=== PATIENT | female | born 1940 | race Caucasian/White ===

== ENCOUNTER 2021-07-15 11:13 | Emergency (ER) | payer MEDICARE ==
--- NOTE | 2021-07-15 12:12 | EDM.PDOC ---
ED HPI GENERAL MEDICAL PROBLEM - General Stated Complaint: STROKE LIKE SYMPTOMS Time Seen by Provider: 07/15/21 11:30 Source of Information: Reports: Patient, Family History Limitations: Reports: No Limitations - History of Present Illness INITIAL COMMENTS - FREE TEXT/NARRATIVE: Patient presented to the ED because of confusion which started at 4 am . said she looks confused and slow to respond. There is no slurring of speech, facial droop or any motor or sensory deficits on the UE and LE-bilateral. - Related Data Allergies Allergy/AdvReac Type Severity Reaction Status Date / Time morphine Allergy Nausea and Verified 09/14/18 13:15 Vomiting Home Meds: Home Meds Gabapentin [Neurontin] 600 mg PO BEDTIME 02/17/16 [History] Multivitamin with Minerals [Multiple Vitamin] 1 tab PO DAILY 02/17/16 [History] Omeprazole [Prilosec] 20 mg PO ACBREAKFAST 02/17/16 [History] PARoxetine [Paxil] 20 mg PO DAILY 02/17/16 [History] atenoloL [Tenormin] 25 mg PO BEDTIME 02/17/16 [History] atenoloL [Tenormin] 50 mg PO DAILY 02/17/16 [History] Aspirin [Ecotrin EC] 325 mg PO DAILY 09/14/18 [History] Ferrous Sulfate 325 mg PO BIDMEALS 09/14/18 [History] Sennosides/Docusate Sodium [Senna-S] 2 tab PO BID PRN 09/14/18 [History] amLODIPine Besylate [Amlodipine Besylate] 5 mg PO DAILY 09/14/18 [History] polyethylene glycoL 3350 [MiraLAX] 17 gm PO DAILY 09/14/18 [History] Acetaminophen/HYDROcodone [HYDROcodone-Acetaminophen 5-325 MG *] 1 tab PO TID PRN #15 tablet 09/22/18 [Rx] Enoxaparin [Lovenox] 40 mg SUBCUT Q24H #17 syringe 09/22/18 [Rx] atorvaSTATin [Lipitor] 40 mg PO BEDTIME 09/22/18 [History] Past Medical History HEENT History: Reports: Hard of Hearing Cardiovascular History: Reports: Blood Clots/VTE/DVT, CAD, High Cholesterol, Hypertension, Other (See Below) Other Cardiovascular History: Benign essential hypertension Respiratory History: Reports: None Gastrointestinal History: Reports: GERD Other Gastrointestinal History: GASTRIC ULCER Genitourinary History: Reports: Urinary Incontinence CRAP SHOOTER History: Reports: Other CRAP SHOOTER History: Musculoskeletal History: Reports: Back Pain, Chronic Other Musculoskeletal History: OSTEOPENIA Neurological History: Reports: CVA Other Neuro History: RLS; LUMBAR SPONDYLOSIS Psychiatric History: Reports: Anxiety Endocrine/Metabolic History: Reports: None Immunologic History: Reports: None Oncologic (Cancer) History: Reports: None Dermatologic History: Reports: None - Infectious Disease History Infectious Disease History: Reports: Measles - Past Surgical History Head Surgeries/Procedures: Reports: None HEENT Surgical History: Reports: Adenoidectomy, Cataract Surgery, Tonsillectomy Cardiovascular Surgical History: Reports: Coronary Artery Stent GI Surgical History: Reports: Colonoscopy, Polypectomy Female Surgical History: Reports: Breast Biopsy, Hysterectomy Musculoskeletal Surgical History: Reports: Hip Replacement, Knee Replacement Social & Family History - Family History Family Medical History: No Pertinent Family History - Caffeine Use Caffeine Use: Reports: Coffee, Soda, Tea Caffeine Use Comment: Daily ED ROS GENERAL - Review of Systems Review Of Systems: See Below Constitutional: Reports: No Symptoms HEENT: Reports: No Symptoms Respiratory: Reports: No Symptoms Cardiovascular: Reports: No Symptoms Endocrine: Reports: No Symptoms GI/Abdominal: Reports: No Symptoms : Reports: No Symptoms Musculoskeletal: Reports: No Symptoms Skin: Reports: No Symptoms Neurological: Reports: No Symptoms Psychiatric: Reports: No Symptoms ED EXAM, NEURO - Physical Exam Exam: See Below Exam Limited By: No Limitations General Appearance: Alert, No Apparent Distress Ears: Normal External Exam, Normal Canal Nose: Normal Inspection, Normal Mucosa, No Blood Throat/Mouth: Normal Inspection, Normal Lips, Normal Teeth, Normal Gums Head Exam: Atraumatic, Normocephalic Neck: Normal Inspection, Supple, Non-Tender, Full Range of Motion Respiratory/Chest: No Respiratory Distress, Lungs Clear, Normal Breath Sounds, No Accessory Muscle Use, Chest Non-Tender Cardiovascular: Normal Peripheral Pulses, Regular Rate, Rhythm, No Edema GI/Abdominal: Normal Bowel Sounds, Soft, No Organomegaly Neurological: Alert, Normal Mood/Affect, Normal Dorsiflexion, CN II-XII Intact, Normal Plantar Flexion, Normal Gait, Normal Reflexes, Oriented x 3 Back Exam: Normal Inspection, Full Range of Motion Extremities: Normal Inspection, Normal Range of Motion, Non-Tender Psychiatric: Normal Affect, Normal Mood Skin Exam: Warm, Dry, Intact, Normal Color, No Rash #1 Interpretation EKG Date: 07/15/21 Time: 11:19 Rhythm: NSR Rate (Beats/Min): 61 [place]: Normal P-Wave: Present QRS: Normal ST-T: Normal QT: Normal IN/PQ Interval: 169 Comparison: No Change EKG Interpretation Comments: NSR PAC's Course - Vital Signs Text/Narrative:: Lab/Head/EKG result was reviewed and discussed with patient NIHSS-0 Last Recorded V/S: Last Vital Signs Temp 36.3 C 07/15/21 11:20 Pulse 61 07/15/21 11:20 Resp 19 07/15/21 11:20 BP 169/67 H 07/15/21 11:20 Pulse Ox 97 07/15/21 11:20 - Orders/Labs/Meds Orders: Active Orders 24 hr Category Date Time Status Chest 1V Frontal [CR] Stat Exams 07/15/21 11:34 Taken Head wo Cont [CT] Stat Exams 07/15/21 11:28 Taken EKG 12 Lead [EK] Routine Ther 07/15/21 11:28 Ordered Labs: Laboratory Tests 07/15/21 07/15/21 07/15/21 Range/Units 11:54 11:54 11:54 WBC 7.4 (3.0-10.3) x10-3/uL RBC 4.02 (3.60-5.20) x10(6)uL Hgb 8.7 L (11.4-15.5) g/dL Hct 28.8 L (34.2-48.2) % MCV 71.8 L (76.7-100.5) fL MCH 21.7 L (23.9-33.9) pg MCHC 30.2 L (31.9-34.8) g/dL RDW 16.8 H (12.3-16.5) % Plt Count 228 (151-488) x10(3)uL MPV 8.4 (7.1-12.4) fL Neut % (Auto) 65.9 (30.8-76.2) % Lymph % (Auto) 21.3 (18.4-52.1) % [place] % (Auto) 9.8 (4.4-15.7) % Eos % (Auto) 2.2 (0.6-8.1) % Baso % (Auto) 0.8 (0.2-1.5) % Neut # (Auto) 4.9 (1.5-6.3) x10-3/uL Lymph # (Auto) 1.6 (1.0-4.4) x10-3/uL [place] # (Auto) 0.7 (0.3-1.0) x10-3/uL Eos # (Auto) 0.2 (0.0-0.8) x10-3/uL Baso # (Auto) 0.1 (0.0-0.1) x10-3/uL PT (9.0-11.1) sec INR (1.00-1.24) APTT (24.4-33.2) SECONDS Sodium 142 (135-145) mmol/L Potassium 4.3 (3.5-5.3) mmol/L Chloride 107 D (100-110) mmol/L Carbon Dioxide 26 (21-32) mmol/L BUN 20 H (7-18) mg/dL Creatinine 0.8 (0.55-1.02) mg/dL Est Cr Clr Drug Dosing TNP Estimated GFR (MDRD) > 60 (>60) BUN/Creatinine Ratio 25.0 H (9-20) Glucose 109 (80-116) mg/dL Calcium 8.5 L (8.6-10.2) mg/dL Total Bilirubin 0.4 (0.1-1.3) mg/dL AST 15 D (5-25) IU/L ALT 20 D (12-36) U/L Alkaline Phosphatase 101 (56-112) IU/L Troponin I 8.2 (4.0-60.3) pg/mL Total Protein 6.6 (6.0-8.0) g/dL Albumin 3.3 (3.2-4.6) g/dL Globulin 3.3 g/dL Albumin/Globulin Ratio 1.0 Urine Color (YELLOW) Urine Appearance (CLEAR) Urine pH (5.0-6.5) Ur Specific [place] (1.010-1.025) Urine Protein (NEGATIVE) mg/dL Urine Glucose (UA) (NORMAL) mg/dL Urine Ketones (NEGATIVE) mg/dL Urine Occult Blood (NEGATIVE) Urine Nitrite (NEGATIVE) Urine Bilirubin (NEGATIVE) Urine Urobilinogen (NEGATIVE) mg/dL Ur Leukocyte Esterase (NEGATIVE) Urine RBC (0-5) Urine WBC (0-5) Ur Squamous Epith Cells (NS,R,O) Urine Bacteria (NS) 07/15/21 07/15/21 Range/Units 11:54 12:30 WBC (3.0-10.3) x10-3/uL RBC (3.60-5.20) x10(6)uL Hgb (11.4-15.5) g/dL Hct (34.2-48.2) % MCV (76.7-100.5) fL MCH (23.9-33.9) pg MCHC (31.9-34.8) g/dL RDW (12.3-16.5) % Plt Count (151-488) x10(3)uL MPV (7.1-12.4) fL Neut % (Auto) (30.8-76.2) % Lymph % (Auto) (18.4-52.1) % [place] % (Auto) (4.4-15.7) % Eos % (Auto) (0.6-8.1) % Baso % (Auto) (0.2-1.5) % Neut # (Auto) (1.5-6.3) x10-3/uL Lymph # (Auto) (1.0-4.4) x10-3/uL [place] # (Auto) (0.3-1.0) x10-3/uL Eos # (Auto) (0.0-0.8) x10-3/uL Baso # (Auto) (0.0-0.1) x10-3/uL PT 10.9 (9.0-11.1) sec INR 1.01 (1.00-1.24) APTT 23.9 L (24.4-33.2) SECONDS Sodium (135-145) mmol/L Potassium (3.5-5.3) mmol/L Chloride (100-110) mmol/L Carbon Dioxide (21-32) mmol/L BUN (7-18) mg/dL Creatinine (0.55-1.02) mg/dL Est Cr Clr Drug Dosing Estimated GFR (MDRD) (>60) BUN/Creatinine Ratio (9-20) Glucose (80-116) mg/dL Calcium (8.6-10.2) mg/dL Total Bilirubin (0.1-1.3) mg/dL AST (5-25) IU/L ALT (12-36) U/L Alkaline Phosphatase (56-112) IU/L Troponin I (4.0-60.3) pg/mL Total Protein (6.0-8.0) g/dL Albumin (3.2-4.6) g/dL Globulin g/dL Albumin/Globulin Ratio Urine Color Yellow (YELLOW) Urine Appearance Clear (CLEAR) Urine pH 6.5 (5.0-6.5) Ur Specific [place] 1.015 (1.010-1.025) Urine Protein Negative (NEGATIVE) mg/dL Urine Glucose (UA) Normal (NORMAL) mg/dL Urine Ketones Negative (NEGATIVE) mg/dL Urine Occult Blood Negative (NEGATIVE) Urine Nitrite Negative (NEGATIVE) Urine Bilirubin Negative (NEGATIVE) Urine Urobilinogen Normal (NEGATIVE) mg/dL Ur Leukocyte Esterase Negative (NEGATIVE) Urine RBC 0-5 (0-5) Urine WBC 0-5 (0-5) Ur Squamous Epith Cells Few H (NS,R,O) Urine Bacteria Few H (NS) Departure - Departure Time of Disposition: 12:55 Disposition: Home, Self-Care 01 Condition: Good Clinical Impression: Dehydration, Altered level of consciousness - Discharge Information Instructions: Confusion, Dehydration, Elderly, [id number] Referrals: Edward Cardona MD [Primary Care Provider] - Forms: ED Department Discharge Additional Instructions: Please read discharge d instructions on dehydration and altered level of consciousness(confusion) Drink at least 2 liters of water daily Follow up as needed Sepsis Event Note (ED) - Focused Exam Vital Signs: Vital Signs Temp Pulse Resp BP Pulse Ox 07/15/21 11:20 36.3 C 61 19 169/67 H 97 - My Orders Last 24 Hours: My Active Orders 07/15/21 11:28 Head wo Cont [CT] Stat EKG 12 Lead [EK] Routine 07/15/21 11:34 Chest 1V Frontal [CR] Stat - Assessment/Plan Last 24 Hours: My Active Orders 07/15/21 11:28 Head wo Cont [CT] Stat EKG 12 Lead [EK] Routine 07/15/21 11:34 Chest 1V Frontal [CR] Stat
--- NOTE | 2021-07-15 13:23 | CT ---
CT HEAD WITHOUT CONTRAST INDICATION: Stroke-like symptoms. TECHNIQUE: Spiral 3.75 mm axial sections were obtained through the brain without contrast with axial, sagittal and coronal reconstructions 07/15/21 - no comparisons. Total exam DLP was 1244.66 mGy/cm. FINDINGS: The presence of what appear to be tiny cystic structures in the right maxillary antrum are noted with some very minimal thickening of the left maxillary antral lining along a limited area of it. Paranasal sinuses were otherwise well aerated. The mastoid air cells appear to be well aerated. The cranium appears to be intact. The orbits appear to be intact. Calcifications are noted in the left vertebral, basilar and internal carotid arteries. There is a moderately large rounded low density area in the basal ganglia on the right anteriorly which may represent an acute or evolving lacunar infarct. Additional abnormal decreased density is noted in the anterior limb of the right internal capsule likely on that basis also. Additional low density abnormality is noted in the periventricular and ventricular white matter in the frontoparietal area, most prominently on the left, but also seen more posteriorly on the right and more anteriorly in the parietal lobe white matter area on the right and left. These findings may be on the basis of microvascular disease type change. No gross cortical infarct is strongly suggested, but an early thrombotic CVA involving the cortex is difficult to entirely exclude with this appearance. No bleeding site was identified - no hemorrhage or hematoma was seen. No shift of midline structures or significant ventricular abnormalities for age was noted. The slightly more prominent left lateral ventricle may be on the basis of relative loss of white matter viability or developmental anomaly. IMPRESSION: Cerebrovascular disease is noted with multiple areas of low density abnormality in the white matter bilaterally, especially prominent on the left in the frontoparietal area and also noted in the anterior limb of the right internal capsule and basal ganglia on the right. Report was called to Dr. Flores at 1152 hours 07/15/21. [facility]
--- NOTE | 2021-07-15 13:26 | CR ---
CHEST ONE VIEW INDICATION: CVA. FINDINGS: AP upright portable view of the chest was obtained 07/15/21 - no comparisons. The heart did not appear grossly enlarged and appeared normal in shape. The aorta is tortuous with calcification in the arch. Overlying EKG leads are noted. A definite active infiltrate or effusion was not identified. Evidence of exogenous obesity is noted. IMPRESSION: No acute process. Report was called to Dr. Flores at 1052 hours 07/15/21. [facility]
[2021-07-15 20:32] VITALS: BP 161/77; PULSE 53
== END 2021-07-15 13:37 | disposition home or self-care (01) ==
LOC: FB.ED 11:13
DX: E86.0 Dehydration (principal); R40.0 Somnolence; I25.10 Atherosclerotic heart disease of native coronary artery without angina pectoris; E78.00 Pure hypercholesterolemia, unspecified; I10 Essential (primary) hypertension; K21.9 Gastro-esophageal reflux disease without esophagitis; Z88.5 Allergy status to narcotic agent; Z79.82 Long term (current) use of aspirin; Z79.899 Other long term (current) drug therapy
CPT/HCPCS: 36415; 70450; 71045; 80053; 81001; 84484; 85025; 85610; 85730; 93005; 99285-25

== ENCOUNTER 2021-09-08 06:46 | Day surgery (SDC) | payer MEDICARE ==
[2021-09-08] MEDS ORDERED: Ondansetron 4 MG/2 ML SDV IVPUSH ONE (06:47)
[2021-09-08] MEDS ORDERED: Propofol 200 MG/20 ML SDV IV ONE (06:47)
[2021-09-08] MEDS ORDERED: Lidocaine 2% 5 ML SDV INJECT ONE (06:47)
[2021-09-08] MEDS ORDERED: Lactated Ringers 1,000 ML IV SCH (07:45)
[2021-09-08] MEDS ORDERED: Sodium Chloride 0.9% 10 ML Syringe FLUSH PRN (07:45)
--- NOTE | 2021-09-08 10:15 | PCM.PN ---
- General Info Date of Service: 09/08/21 - Review of Systems Systems Review Comment:: 81 y/o female noted to have unexplained anemia. She is here for EGD and Colonoscopy. She denies any GERD or Dysphagia and states she has not noted any blood in stools or change in bowel pattern. Her recent H and P is reviewed and no significant changes are noted. I have discussed the proposed EGD and Colonoscopy with the patient. She agrees to proceed accepting risks. - Patient Data Vitals - Most Recent: Last Vital Signs Temp 97.2 F 09/08/21 07:30 Pulse 64 09/08/21 07:30 Resp 16 09/08/21 07:30 BP 154/64 H 09/08/21 07:30 Pulse Ox 97 09/08/21 07:30 Weight - Most Recent: 163 lb Med Orders - Current: Current Medications Lactated Ringer's (Ringers, Lactated) 1,000 mls @ 125 mls/hr IV ASDIRECTED FANNIE Last Admin: 09/08/21 07:46 Dose: 125 mls/hr Documented by: Sodium Chloride (Sodium Chloride 0.9% 10 Ml Syringe) 10 ml FLUSH ASDIRECTED PRN PRN Reason: Keep Vein Open Sepsis Event Note - Focused Exam Vital Signs: Vital Signs Temp Pulse Resp BP Pulse Ox 09/08/21 07:30 97.2 F 64 16 154/64 H 97 - Problem List Review Problem List Initiated/Reviewed/Updated: Yes - My Orders Last 24 Hours: My Active Orders 09/08/21 Breakfast Nothing Per Oral Diet [DIET] 09/08/21 07:45 Patient Status [ADT] Routine Patient to Empty Bladder [RC] ASDIRECTED Verify Patient Consent Obtain [RC] ASDIRECTED Lactated Ringers [Ringers, Lactated] 1,000 ml IV ASDIRECTED Sodium Chloride 0.9% [Saline Flush] 10 ml FLUSH ASDIRECTED PRN Peripheral IV Insertion Adult [OM.PC] Routine - Assessment Assessment:: Anemia - Plan Plan:: EGD and Colonoscopy
--- NOTE | 2021-09-08 11:21 | PCM.OPNOTE ---
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 Duodenal stricture. Gastritis Anesthesia Technique: MAC Primary Surgeon: Shashi Anderson Pathology: Biopsies of Duodenum, Stomach, Esophagus, Colon masses EBL in mLs: 4 Complications: None Condition: Good
[2021-09-08 13:48] VITALS: BP 138/62; PULSE 56
--- NOTE | 2021-09-08 19:43 | OR ---
DATE OF OPERATION: 09/08/2021 SURGEON: Shashi Anderson MD PREOPERATIVE DIAGNOSIS: Anemia. POSTOPERATIVE DIAGNOSES: Ascending and sigmoid colon masses, duodenal stricture, gastritis, hemorrhoids. OPERATION PERFORMED: Esophagogastroduodenoscopy with biopsy. Colonoscopy with biopsy. INDICATIONS FOR SURGERY: This 81-year-old female is noted to have significant anemia and is referred for EGD and colonoscopy. FINDINGS: On upper endoscopy, no active bleeding is seen. She has a mild degree of inflammation in the antrum near the pylorus, although without ulcer formation. There is also a benign-appearing stricture in the second portion of the duodenum which prevents the scope from advancing past this point, but no gross evidence of malignancy is seen at this level. In the patient's esophagus, there are a few white scattered patches suggesting the possibility of mild Jaci esophagitis. During colonoscopy, the patient was noted to have a large circumferential fungating mass in the ascending colon. This appeared to be grossly malignant. The scope was able to be advanced through the lesion, and the cecum appeared normal. In addition, there is noted at the sigmoid level approximately 20 cm from the anal verge an approximately 3 to 4 cm polypoid irregular mass, also worrisome for possibility of malignancy. The patient had some moderate-sized internal and external hemorrhoids. The colon otherwise appeared normal. PROCEDURE IN DETAIL: The patient was taken to the procedure room. She was given intravenous sedation, and with her in the left lateral decubitus position, the Olympus gastroscope was advanced through a mouth guard into the oral cavity. Under direct visualization, the scope was advanced down through the esophagus, stomach, and into the duodenum. Examination could be carried out to the 2nd portion, but there appeared to be a benign-appearing stricture in this region and the scope could not be advanced past this point. Visualization of the mucosa past the stricture did appear to show it to be normal. Random biopsies of the duodenum were taken in the area of this stricture. The scope was withdrawn back into the stomach, where full examination including retroflexed examination of the fundus was performed. Random biopsies of the antrum were taken to rule out H. pylori. The GE junction and esophagus were then examined. There were a few white patches noted in the esophageal lining, and biopsies of these were taken to rule out Jaci esophagitis. The scope was removed and attention was turned to colonoscopy. Digital rectal exam was performed. No rectal masses were noted. The Olympus colonoscope was inserted into the rectum, retroflexed examination of the of the rectum was performed. The scope was then carefully advanced under direct visualization through the colon to the ascending colon level where the large circumferential mass was noted. The mass was able to be cannulated and the cecum entered just proximal to the mass. The cecum appeared normal. Light was noted to transilluminate the abdominal wall through the right lower quadrant. The scope was then withdrawn back to the mass where multiple biopsies of it are taken. The scope was then further withdrawn back to the sigmoid colon level where a large polypoid mass is identified in the sigmoid region approximately 20 cm from the anal verge. Multiple biopsies of this were taken as it did appear to be too large to readily remove with normal endoscopic techniques, and also a tattoo was placed in the mucosa just distal to the mass. The scope was withdrawn back in to the rectum and removed, and the patient was taken from the procedure room in satisfactory condition. ESTIMATED BLOOD LOSS: 4 mL. COMPLICATIONS: None. PROGNOSIS: Good. /[id number] LINDA/ABHILASH
== END 2021-09-08 13:49 | disposition home or self-care (01) ==
LOC: FB.SDS 06:46
PROVIDERS: ATTEND Surgery
DX: C18.2 Malignant neoplasm of ascending colon (principal); D12.5 Benign neoplasm of sigmoid colon; K63.3 Ulcer of intestine; K64.9 Unspecified hemorrhoids; K31.5 Obstruction of duodenum; K64.8 Other hemorrhoids; K64.4 Residual hemorrhoidal skin tags; K29.50 Unspecified chronic gastritis without bleeding; I10 Essential (primary) hypertension; E78.5 Hyperlipidemia, unspecified; I25.10 Atherosclerotic heart disease of native coronary artery without angina pectoris; F41.1 Generalized anxiety disorder; D50.9 Iron deficiency anemia, unspecified; Z86.73 Personal history of transient ischemic attack (TIA), and cerebral infarction without residual deficits; Z98.890 Other specified postprocedural states; Z79.899 Other long term (current) drug therapy; Z87.891 Personal history of nicotine dependence
CPT/HCPCS: 00813-QZ; 88305; 88342; J2405; J2704; J7120

== ENCOUNTER 2021-10-30 10:27 | Inpatient (IN) | payer MEDICARE ==
[2021-10-30] MEDS ORDERED: Acetaminophen 325 MG Tab PO PRN (13:51)
[2021-10-30] MEDS ORDERED: oxyCODONE 5 MG Tab PO PRN (13:51)
[2021-10-30] MEDS: Carvedilol 6.25 MG Tab PO SCH (17:48)
[2021-10-30] MEDS: Ferrous Sulfate 325 MG Tab PO SCH (17:48)
--- NOTE | 2021-10-30 18:18 | PCM.HP.2 ---
H&P History of Present Illness - General Date of Service: 10/30/21 Admit Problem/Dx: Admission Diagnosis/Problem Admission Diagnosis/Problem Weakness Source of Information: Patient, Old Records History Limitations: Reports: No Limitations - History of Present Illness Initial Comments - Free Text/Narative: Gerda is a pleasant 81-year-old female admitted from [facility] due to weakness. She was admitted there on the Sep and underwent sigmoid colectomy, and hemicolectomy due to malignant neoplasm of the colon. Postoperatively she's been discharged to here to continue with recovery and physical rehabilitation. Gerda has a history of benign essential hypertension, dyslipidemia, generalized anxiety disorder, chronic back pain chronic disease -all stable. - Related Data Allergies/Adverse Reactions: Allergies Allergy/AdvReac Type Severity Reaction Status Date / Time morphine Allergy Nausea and Verified 09/26/21 08:29 Vomiting Home Medications: Home Meds PARoxetine [Paxil] 20 mg PO DAILY 09/08/21 [History] Acetaminophen [Tylenol] 650 mg PO Q4H PRN 10/30/21 [History] Aspirin [Aspirin EC] 325 mg PO DAILY 10/30/21 [History] Ferrous Sulfate 325 mg PO BID 10/30/21 [History] Furosemide [Lasix] 20 mg PO MOWEFR 10/30/21 [History] Omeprazole 20 mg PO DAILY@0600 10/30/21 [History] amLODIPine Besylate [Amlodipine Besylate] 10 mg PO DAILY 10/30/21 [History] atorvaSTATin [Lipitor] 40 mg PO BEDTIME 10/30/21 [History] carvediloL [Coreg] 6.25 mg PO BIDMEALS 10/30/21 [History] oxyCODONE 5 mg PO Q4H PRN 10/30/21 [History] Past Medical History HEENT History: Reports: Hard of Hearing, Impaired Vision Cardiovascular History: Reports: Blood Clots/VTE/DVT, CAD, High Cholesterol, Hypertension, Other (See Below) Other Cardiovascular History: Benign essential hypertension Respiratory History: Reports: None Gastrointestinal History: Reports: GERD, Hemorrhoids Other Gastrointestinal History: GASTRIC ULCER, DUODENOL STENOSIS Genitourinary History: Reports: Urinary Incontinence 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 RLS. SI JOINT DYSFUNCTION WITH INJECTIONS Neurological History: Reports: CVA Other Neuro History: RLS; LUMBAR SPONDYLOSIS Psychiatric History: Reports: Anxiety Endocrine/Metabolic History: Reports: Osteopenia Hematologic History: Reports: Anemia Immunologic History: Reports: None Oncologic (Cancer) History: Reports: Colon Dermatologic History: Reports: None - Infectious Disease History Infectious Disease History: Reports: Measles - Past Surgical History Head Surgeries/Procedures: Reports: None HEENT Surgical History: Reports: Adenoidectomy, Cataract Surgery, Tonsillectomy Cardiovascular Surgical History: Reports: Coronary Artery Stent, Other (See Below) Other Cardiovascular Surgeries/Procedures: IMPLANTED LOOP RECORDER Respiratory Surgical History: Reports: None GI Surgical History: Reports: Appendectomy, Colon, Colonoscopy, EGD, Polypectomy Female Surgical History: Reports: Breast Biopsy, Hysterectomy Neurological Surgical History: Reports: Laminectomy Other Neurological Surgeries/Procedures: L3-5 LAMINECTOMY 11-17-11. ANTERIOR FIXATION OF LUMBAR SPINE L4-5 03-28-15 Musculoskeletal Surgical History: Reports: Hip Replacement, Knee Replacement Other Musculoskeletal Surgeries/Procedures:: R HIP REPLACEMENT 09-09-18. R KNEE REPLACEMENT 06-19-14. LAMINECTOMY LUMBAR. SPINAL FUSION Oncologic Surgical History: Reports: Other (See Below) Other Oncologic Surgeries/Procedures: COLECTOMY- 10/22/21 Dermatological Surgical History: Reports: None Social & Family History - Family History Family Medical History: No Pertinent Family History - Tobacco Use Tobacco Use Status *Q: Never Tobacco User - Caffeine Use Caffeine Use: Reports: Coffee Caffeine Use Comment: Daily - Alcohol Use Days Per Week of Alcohol Use: 4 Number of Drinks Per Day: 1 Total Drinks Per Week: 4 - Recreational Drug Use Recreational Drug Use: No H&P Review of Systems - Review of Systems: Review Of Systems: Comprehensive ROS is negative, except as noted in HPI. Exam - Exam Exam: See Below - Vital Signs Vital Signs: Last Vital Signs Temp 98 F 10/30/21 13:30 Pulse 56 L 10/30/21 17:48 Resp 16 10/30/21 13:30 BP 161/94 H 10/30/21 17:48 Pulse Ox 92 L 10/30/21 13:30 Weight: 67.903 kg - Exam General: Alert, Oriented, 4 HEENT: PERRLA, Hearing Intact, Mucosa Moist & [place], Nares Patent, Normal Nasal Septum, Posterior Pharynx Clear, Conjunctiva Clear, EOMI, EACs Clear, TMs Clear Neck: Supple, Trachea Midline, 2 Lungs: Clear to Auscultation, Normal Respiratory Effort Cardiovascular: Regular Rate, Regular Rhythm GI/Abdominal Exam: Normal Bowel Sounds, Soft, Non-Tender, No Organomegaly, No Distention, No Abnormal Bruit, No Mass, Pelvis Stable (Female) Exam: Deferred Rectal (Female) Exam: Deferred Back Exam: Normal Inspection, Full Range of Motion, NT Extremities: Normal Inspection, Normal Range of Motion, Non-Tender, No Pedal Edema, Normal Capillary Refill Skin: Warm, Dry, Intact Neurological: Cranial Nerves Intact, Reflexes Equal Bilateral Neuro Extensive - Mental Status: Alert, Oriented x3, Normal Mood/Affect, Normal Cognition Neuro Extensive - Motor, Sensory, Reflexes: CN II-XII Intact, Normal Gait, Normal Reflexes Psychiatric: Alert, Normal Affect, Normal Mood Sepsis Event Note - Evaluation Sepsis Screening Result: No Definite Risk - Focused Exam Vital Signs: Vital Signs Temp Pulse Pulse Resp BP BP Pulse Ox 10/30/21 17:48 56 L 161/94 H 10/30/21 13:30 98 F 52 L 16 161/94 H 92 L Pulse Ox 10/30/21 17:48 10/30/21 13:30 92 L - Problem List (1) Weakness SNOMED Code(s): 88056773 ICD Code: R53.1 - WEAKNESS Status: Acute Current Visit: Yes (2) Colon cancer SNOMED Code(s): 065752635 ICD Code: C18.9 - MALIGNANT NEOPLASM OF COLON, UNSPECIFIED Status: Acute Current Visit: Yes Qualifiers: Colon location: sigmoid Qualified Code(s): C18.7 - Malignant neoplasm of sigmoid colon (3) History of open sigmoidectomy SNOMED Code(s): 242279817 ICD Code: Z98.890 - OTHER SPECIFIED POSTPROCEDURAL STATES; Z90.49 - ACQUIRED ABSENCE OF OTHER SPECIFIED PARTS OF DIGESTIVE TRACT Status: Acute Current Visit: Yes (4) HTN (hypertension) SNOMED Code(s): 17911512 ICD Code: I10 - ESSENTIAL (PRIMARY) HYPERTENSION Status: Acute Current Visit: Yes Qualifiers: Hypertension type: primary hypertension Qualified Code(s): I10 - Essential (primary) hypertension (5) MARIAN (generalized anxiety disorder) SNOMED Code(s): 47047083 ICD Code: F41.1 - GENERALIZED ANXIETY DISORDER Status: Acute Current Visit: Yes (6) Status post colectomy SNOMED Code(s): 887970252, 39711475, 35876766, 010776831 ICD Code: Z90.49 - ACQUIRED ABSENCE OF OTHER SPECIFIED PARTS OF DIGESTIVE TRACT Status: Acute Current Visit: Yes Problem List Initiated/Reviewed/Updated: Yes Orders Last 24hrs: Active Orders 24 hr Category Date Time Status Patient Status [ADT] Routine ADT 10/30/21 13:51 Active Height and Weight [RC] TH Care 10/30/21 13:51 Active Oxygen Therapy [RC] PRN Care 10/30/21 13:51 Active Up With Assistance [RC] .PRN Care 10/30/21 13:48 Active VTE/DVT Education [RC] Per Unit Routine Care 10/30/21 13:51 Active Vital Signs [RC] DAILY Care 10/30/21 13:51 Active OT Evaluation and Treatment [CONS] Routine Cons 10/30/21 13:48 Active PT Evaluation and Treatment [CONS] Routine Cons 10/30/21 13:48 Active Acetaminophen [TylenoL] Med 10/30/21 13:51 Active 650 mg PO Q4H PRN Aspirin [Ecotrin] Med 10/31/21 09:00 Active 325 mg PO DAILY Ferrous Sulfate Med 10/30/21 18:00 Active 325 mg PO BIDMEALS Furosemide [Lasix] Med 10/31/21 09:00 Active 20 mg PO MOWEFR PARoxetine [Paxil] Med 10/31/21 09:00 Active 20 mg PO DAILY Pantoprazole [ProTONIX] Med 10/31/21 06:00 Active 40 mg PO DAILY@0600 amLODIPine [Norvasc] Med 10/31/21 09:00 Active 10 mg PO DAILY atorvaSTATin [Lipitor] Med 10/31/21 21:00 Active 40 mg PO BEDTIME carvediloL [Coreg] Med 10/30/21 18:00 Active 6.25 mg PO BIDMEALS oxyCODONE Med 10/30/21 13:51 Active 5 mg PO Q4H PRN Resuscitation Status Routine Resus Stat 10/30/21 13:48 Ordered Medication Orders Acetaminophen (Acetaminophen 325 Mg Tab) 650 mg PO Q4H PRN PRN Reason: mild pain Amlodipine Besylate (Amlodipine 10 Mg Tab) 10 mg PO DAILY [facility] Aspirin (Aspirin 325 Mg Tab.Ec) 325 mg PO DAILY [facility] Atorvastatin Calcium (Atorvastatin 40 Mg Tab) 40 mg PO BEDTIME [facility] Carvedilol (Carvedilol 6.25 Mg Tab) 6.25 mg PO BIDMEALS [facility] Last Admin: 10/30/21 17:48 Dose: 6.25 mg Documented by: JUAN Ferrous Sulfate (Ferrous Sulfate 325 Mg Tab) 325 mg PO BIDMEALS [facility] Last Admin: 10/30/21 17:48 Dose: 325 mg Documented by: JUAN Furosemide (Furosemide 20 Mg Tab) 20 mg PO MOWEFR [facility] Oxycodone HCl (Oxycodone 5 Mg Tab) 5 mg PO Q4H PRN PRN Reason: severe pain Pantoprazole Sodium (Pantoprazole 40 Mg Tab.Cr) 40 mg PO DAILY@0600 [facility] Paroxetine HCl (Paroxetine 20 Mg Tab) 20 mg PO DAILY [facility] Assessment/Plan Comment:: Admit to [facility] with routine orders.Include PT/OT
[2021-10-31] MEDS: Pantoprazole 40 MG Tab.CR PO SCH (05:55)
[2021-10-31] MEDS: Ferrous Sulfate 325 MG Tab PO SCH ×2 (08:54→17:51)
[2021-10-31] MEDS: PARoxetine 20 MG Tab PO SCH (08:54)
[2021-10-31] MEDS: amLODIPine 10 MG Tab PO SCH (08:55)
[2021-10-31] MEDS: Aspirin 325 MG Tab.EC PO SCH (08:55)
[2021-10-31] MEDS: Carvedilol 6.25 MG Tab PO SCH ×2 (08:55→17:51)
[2021-10-31] MEDS: Furosemide 20 MG Tab PO SCH (08:55)
[2021-10-31] MEDS: atorvaSTATin 40 MG Tab PO SCH (20:40)
[2021-11-01] MEDS: Pantoprazole 40 MG Tab.CR PO SCH (05:39)
[2021-11-01] MEDS: Carvedilol 6.25 MG Tab PO SCH ×2 (08:31→17:12)
[2021-11-01] MEDS: PARoxetine 20 MG Tab PO SCH (08:32)
[2021-11-01] MEDS: Aspirin 325 MG Tab.EC PO SCH (08:32)
[2021-11-01] MEDS: amLODIPine 10 MG Tab PO SCH (08:32)
[2021-11-01] MEDS: Ferrous Sulfate 325 MG Tab PO SCH ×2 (08:32→17:13)
[2021-11-01] MEDS: atorvaSTATin 40 MG Tab PO SCH (21:02)
[2021-11-02] MEDS: Pantoprazole 40 MG Tab.CR PO SCH (05:44)
[2021-11-02] MEDS: Carvedilol 6.25 MG Tab PO SCH ×2 (07:37→17:35)
[2021-11-02] MEDS: Ferrous Sulfate 325 MG Tab PO SCH ×2 (07:41→17:38)
[2021-11-02] MEDS: Aspirin 325 MG Tab.EC PO SCH (09:20)
[2021-11-02] MEDS: amLODIPine 10 MG Tab PO SCH (09:20)
[2021-11-02] MEDS: PARoxetine 20 MG Tab PO SCH (09:20)
[2021-11-02] MEDS ORDERED: Acetaminophen/HYDROcodone 325-5 MG Tab PO PRN (09:26)
[2021-11-02] MEDS ORDERED: Polyethylene Glycol 3350 Powder 17 GM Packet PO PRN (09:30)
--- NOTE | 2021-11-02 09:30 | PCM.PN ---
- General Info Date of Service: 11/02/21 Admission Dx/Problem (Free Text): Patient says she is doing well. Has had no BM according to her. She has no abdominal pain and nausea, vomiting. - Patient Data Vitals - Most Recent: Last Vital Signs Temp 98.3 F 11/01/21 04:32 Pulse 94 11/02/21 07:37 Resp 16 11/01/21 04:32 BP 142/85 H 11/02/21 09:20 Pulse Ox 99 11/01/21 04:32 Weight - Most Recent: 149 lb 11.2 oz Med Orders - Current: Current Medications Acetaminophen (Acetaminophen 325 Mg Tab) 650 mg PO Q4H PRN PRN Reason: mild pain Hydrocodone Bitart/Acetaminophen (Acetaminophen/Hydrocodone 325-5 Mg Tab) 1 tab PO Q4H PRN PRN Reason: Pain Amlodipine Besylate (Amlodipine 10 Mg Tab) 10 mg PO DAILY [facility] Last Admin: 11/02/21 09:20 Dose: 10 mg Documented by: Aspirin (Aspirin 325 Mg Tab.Ec) 325 mg PO DAILY [facility] Last Admin: 11/02/21 09:20 Dose: 325 mg Documented by: Atorvastatin Calcium (Atorvastatin 40 Mg Tab) 40 mg PO BEDTIME [facility] Last Admin: 11/01/21 21:02 Dose: 40 mg Documented by: Carvedilol (Carvedilol 6.25 Mg Tab) 6.25 mg PO BIDMEALS [facility] Last Admin: 11/02/21 07:37 Dose: 6.25 mg Documented by: Ferrous Sulfate (Ferrous Sulfate 325 Mg Tab) 325 mg PO BIDMEALS [facility] Last Admin: 11/02/21 07:41 Dose: 325 mg Documented by: Furosemide (Furosemide 20 Mg Tab) 20 mg PO MOWEFR [facility] Last Admin: 10/31/21 08:55 Dose: 20 mg Documented by: Pantoprazole Sodium (Pantoprazole 40 Mg Tab.Cr) 40 mg PO DAILY@0600 [facility] Last Admin: 11/02/21 05:44 Dose: 40 mg Documented by: Paroxetine HCl (Paroxetine 20 Mg Tab) 20 mg PO DAILY [facility] Last Admin: 11/02/21 09:20 Dose: 20 mg Documented by: Discontinued Medications Oxycodone HCl (Oxycodone 5 Mg Tab) 5 mg PO Q4H PRN PRN Reason: severe pain - Exam General: Alert, Oriented, Cooperative, Other (Hard of hearing) GI/Abdominal Exam: Normal Bowel Sounds, Soft, Non-Tender, No Distention Skin: Other (Michael in the stomach in place. Wound looks good without erythema or drainage.) Sepsis Event Note - Evaluation Sepsis Screening Result: No Definite Risk - Focused Exam Vital Signs: Vital Signs Pulse BP 11/02/21 09:20 142/85 H 11/02/21 07:37 94 163/88 H - Problem List & Annotations (1) Colon cancer SNOMED Code(s): 220474340 Code(s): C18.9 - MALIGNANT NEOPLASM OF COLON, UNSPECIFIED Status: Acute Current Visit: Yes Qualifiers: Colon location: sigmoid Qualified Code(s): C18.7 - Malignant neoplasm of sigmoid colon (2) MARIAN (generalized anxiety disorder) SNOMED Code(s): 70194634 Code(s): F41.1 - GENERALIZED ANXIETY DISORDER Status: Acute Current Visit: Yes (3) HTN (hypertension) SNOMED Code(s): 63960795 Code(s): I10 - ESSENTIAL (PRIMARY) HYPERTENSION Status: Acute Current Visit: Yes Qualifiers: Hypertension type: primary hypertension Qualified Code(s): I10 - Essential (primary) hypertension (4) History of open sigmoidectomy SNOMED Code(s): 667182956 Code(s): Z98.890 - OTHER SPECIFIED POSTPROCEDURAL STATES; Z90.49 - ACQUIRED ABSENCE OF OTHER SPECIFIED PARTS OF DIGESTIVE TRACT Status: Acute Current Visit: Yes (5) Status post colectomy SNOMED Code(s): 404878908, 34481736, 17277755, 814718426 Code(s): Z90.49 - ACQUIRED ABSENCE OF OTHER SPECIFIED PARTS OF DIGESTIVE TRACT Status: Acute Current Visit: Yes (6) Weakness SNOMED Code(s): 18031464 Code(s): R53.1 - WEAKNESS Status: Acute Current Visit: Yes (7) Constipation SNOMED Code(s): 75390585 Code(s): K59.00 - CONSTIPATION, UNSPECIFIED Status: Acute Current Visit: Yes - Problem List Review Problem List Initiated/Reviewed/Updated: Yes - My Orders Last 24 Hours: My Active Orders 11/02/21 09:26 Acetaminophen/HYDROcodone [[place] 325-5 MG] 1 tab PO Q4H PRN - Plan Plan:: 1. DC oxycodone and stepdown to hydrocodone 325/5 mg every 4 hours as needed for pain if she needs it. 2. MiraLAX once a day as needed for constipation 3. Continue PT/OT. 4. Continue current care.
[2021-11-02] MEDS: atorvaSTATin 40 MG Tab PO SCH (20:20)
[2021-11-03] MEDS: Pantoprazole 40 MG Tab.CR PO SCH (06:27)
[2021-11-03] MEDS: Ferrous Sulfate 325 MG Tab PO SCH ×2 (09:32→18:02)
[2021-11-03] MEDS: PARoxetine 20 MG Tab PO SCH (09:32)
[2021-11-03] MEDS: Carvedilol 6.25 MG Tab PO SCH ×2 (09:32→18:02)
[2021-11-03] MEDS: amLODIPine 10 MG Tab PO SCH (09:32)
[2021-11-03] MEDS: Aspirin 325 MG Tab.EC PO SCH (09:32)
[2021-11-03] MEDS: Furosemide 20 MG Tab PO SCH (09:33)
[2021-11-03] MEDS: atorvaSTATin 40 MG Tab PO SCH (20:36)
[2021-11-04] MEDS: Pantoprazole 40 MG Tab.CR PO SCH (06:06)
[2021-11-04] MEDS: Ferrous Sulfate 325 MG Tab PO SCH ×2 (07:44→18:20)
[2021-11-04] MEDS: Carvedilol 6.25 MG Tab PO SCH ×2 (07:44→18:20)
[2021-11-04] MEDS: Aspirin 325 MG Tab.EC PO SCH (09:37)
[2021-11-04] MEDS: amLODIPine 10 MG Tab PO SCH (09:37)
[2021-11-04] MEDS: PARoxetine 20 MG Tab PO SCH (09:38)
[2021-11-04] MEDS: atorvaSTATin 40 MG Tab PO SCH (20:20)
[2021-11-05] MEDS: Pantoprazole 40 MG Tab.CR PO SCH (05:35)
--- NOTE | 2021-11-05 06:56 | PCM.DCSUM1 ---
Discharge Summary - Hospital Course Free Text/Narrative:: Hospital course-patient was admitted for PT/OT. She did very well. Her pain was controlled without any pain medication. She was able to move her bowels and really no abdominal pain. She had PT/OT and did quite well. She elected to go home with no PT/OT/home health services. Michael were removed on 11/05/2021. She will follow-up with her surgeon for previously set up appointment. Follow- up with Dr. Cardona in 1 week. Brief History: Gerda is a pleasant 81-year-old female admitted from [facility] due to weakness. She was admitted there on the Sep and underwent sigmoid colectomy, and hemicolectomy due to malignant neoplasm of the colon. Postoperatively she's been discharged to here to continue with recovery and physical rehabilitation. Gerda has a history of benign essential hypertension, dyslipidemia, generalized anxiety disorder, chronic back pain chronic disease - all stable. Diagnosis: Stroke: No - Discharge Data Discharge Date: 11/05/21 Discharge Disposition: Home, Self-Care 01 Condition: Good - Referral to Home Health Primary Care Physician: Edward Cardona MD - Discharge Diagnosis/Problem(s) (1) Colon cancer SNOMED Code(s): 820727632 ICD Code: C18.9 - MALIGNANT NEOPLASM OF COLON, UNSPECIFIED Status: Acute Current Visit: Yes Qualifiers: Colon location: sigmoid Qualified Code(s): C18.7 - Malignant neoplasm of sigmoid colon (2) MARIAN (generalized anxiety disorder) SNOMED Code(s): 93925546 ICD Code: F41.1 - GENERALIZED ANXIETY DISORDER Status: Acute Current Visit: Yes (3) HTN (hypertension) SNOMED Code(s): 37122535 ICD Code: I10 - ESSENTIAL (PRIMARY) HYPERTENSION Status: Acute Current Visit: Yes Qualifiers: Hypertension type: primary hypertension Qualified Code(s): I10 - Essential (primary) hypertension (4) History of open sigmoidectomy SNOMED Code(s): 350820104 ICD Code: Z98.890 - OTHER SPECIFIED POSTPROCEDURAL STATES; Z90.49 - ACQUIRED ABSENCE OF OTHER SPECIFIED PARTS OF DIGESTIVE TRACT Status: Acute Current Visit: Yes (5) Status post colectomy SNOMED Code(s): 890897191, 86670215, 85154922, 154341441 ICD Code: Z90.49 - ACQUIRED ABSENCE OF OTHER SPECIFIED PARTS OF DIGESTIVE TRACT Status: Acute Current Visit: Yes (6) Weakness SNOMED Code(s): 09056632 ICD Code: R53.1 - WEAKNESS Status: Acute Current Visit: Yes (7) Constipation SNOMED Code(s): 01450226 ICD Code: K59.00 - CONSTIPATION, UNSPECIFIED Status: Acute Current Visit: Yes - Patient Summary/Data Consults: Consultations 10/30/21 13:48 OT Evaluation and Treatment [CONS] Routine Please Evaluate and Treat. OT Reason for Consult: ADL's This query below is only for informational purposes and is not editable. PT Evaluation and Treatment [CONS] Routine Please Evaluate and Treat. PT Reason for Consult: Ambulation This query below is only for informational purposes and is not editable. - Patient Instructions Diet: Regular Diet as Tolerated Activity: As Tolerated Driving: May Drive Today Other/Special Instructions: 1. Recheck with Dr. Cardona in 1 week. 2. Recheck with surgery previous made appointment. - Discharge Plan Home Medications: Home Meds PARoxetine [Paxil] 20 mg PO DAILY 09/08/21 [History] Acetaminophen [Tylenol] 650 mg PO Q4H PRN 10/30/21 [History] Aspirin [Aspirin EC] 325 mg PO DAILY 10/30/21 [History] Ferrous Sulfate 325 mg PO BID 10/30/21 [History] Furosemide [Lasix] 20 mg PO MOWEFR 10/30/21 [History] Omeprazole 20 mg PO DAILY@0600 10/30/21 [History] amLODIPine Besylate [Amlodipine Besylate] 10 mg PO DAILY 10/30/21 [History] atorvaSTATin [Lipitor] 40 mg PO BEDTIME 10/30/21 [History] carvediloL [Coreg] 6.25 mg PO BIDMEALS 10/30/21 [History] Patient Handouts: Open Total Colectomy, Care After, [facility], Adult, Venous Thromboembolism Prevention - Discharge Summary/Plan Comment DC Time >30 min.: No Total # of Minutes for Discharge Time: 10 minutes - Patient Data Vitals - Most Recent: Last Vital Signs Temp 97.7 F 11/04/21 07:27 Pulse 105 H 11/04/21 18:20 Resp 16 11/04/21 07:27 BP 169/93 H 11/04/21 18:20 Pulse Ox 96 11/04/21 07:27 Weight - Most Recent: 149 lb 11.2 oz Med Orders - Current: Current Medications Acetaminophen (Acetaminophen 325 Mg Tab) 650 mg PO Q4H PRN PRN Reason: mild pain Hydrocodone Bitart/Acetaminophen (Acetaminophen/Hydrocodone 325-5 Mg Tab) 1 tab PO Q4H PRN PRN Reason: Pain Amlodipine Besylate (Amlodipine 10 Mg Tab) 10 mg PO DAILY [facility] Last Admin: 11/04/21 09:37 Dose: 10 mg Documented by: Aspirin (Aspirin 325 Mg Tab.Ec) 325 mg PO DAILY [facility] Last Admin: 11/04/21 09:37 Dose: 325 mg Documented by: Atorvastatin Calcium (Atorvastatin 40 Mg Tab) 40 mg PO BEDTIME [facility] Last Admin: 11/04/21 20:20 Dose: 40 mg Documented by: Carvedilol (Carvedilol 6.25 Mg Tab) 6.25 mg PO BIDMEALS [facility] Last Admin: 11/04/21 18:20 Dose: 6.25 mg Documented by: Ferrous Sulfate (Ferrous Sulfate 325 Mg Tab) 325 mg PO BIDMEALS [facility] Last Admin: 11/04/21 18:20 Dose: 325 mg Documented by: Furosemide (Furosemide 20 Mg Tab) 20 mg PO MOWEFR [facility] Last Admin: 11/03/21 09:33 Dose: 20 mg Documented by: Pantoprazole Sodium (Pantoprazole 40 Mg Tab.Cr) 40 mg PO DAILY@0600 [facility] Last Admin: 11/05/21 05:35 Dose: 40 mg Documented by: Paroxetine HCl (Paroxetine 20 Mg Tab) 20 mg PO DAILY [facility] Last Admin: 11/04/21 09:38 Dose: 20 mg Documented by: Polyethylene Glycol (Polyethylene Glycol 3350 Powder 17 Gm Packet) 17 gm PO BEDTIME PRN PRN Reason: Constipation Discontinued Medications Oxycodone HCl (Oxycodone 5 Mg Tab) 5 mg PO Q4H PRN PRN Reason: severe pain
[2021-11-05] MEDS: amLODIPine 10 MG Tab PO SCH (08:54)
[2021-11-05] MEDS: Carvedilol 6.25 MG Tab PO SCH (08:54)
[2021-11-05] MEDS: Furosemide 20 MG Tab PO SCH (08:54)
[2021-11-05] MEDS: Ferrous Sulfate 325 MG Tab PO SCH (08:54)
[2021-11-05] MEDS: PARoxetine 20 MG Tab PO SCH (08:54)
[2021-11-05 08:55] VITALS: BP 130/72
[2021-11-05] MEDS: Aspirin 325 MG Tab.EC PO SCH (08:55)
[2021-11-05 10:35] VITALS: PULSE 100
== END 2021-11-05 15:35 | disposition home or self-care (01) | DRG 948 ==
LOC: FB.MS 12:56
PROVIDERS: ADMIT Family Medicine; ATTEND Family Medicine
DX: R53.1 Weakness (principal); C18.7 Malignant neoplasm of sigmoid colon; I10 Essential (primary) hypertension; E78.5 Hyperlipidemia, unspecified; F41.1 Generalized anxiety disorder; M54.9 Dorsalgia, unspecified; G89.29 Other chronic pain; K59.00 Constipation, unspecified; H91.90 Unspecified hearing loss, unspecified ear; H54.7 Unspecified visual loss; K21.9 Gastro-esophageal reflux disease without esophagitis; M19.90 Unspecified osteoarthritis, unspecified site; D64.9 Anemia, unspecified; M85.80 Other specified disorders of bone density and structure, unspecified site; Z96.641 Presence of right artificial hip joint; Z96.651 Presence of right artificial knee joint; Z90.49 Acquired absence of other specified parts of digestive tract; Z88.5 Allergy status to narcotic agent; Z79.82 Long term (current) use of aspirin; Z79.899 Other long term (current) drug therapy; Z86.73 Personal history of transient ischemic attack (TIA), and cerebral infarction without residual deficits; Z90.710 Acquired absence of both cervix and uterus
CPT/HCPCS: 97161-GP; 97166-GO; 97530-GO; 97530-GP; 97535-GO; A9270-GY

== ENCOUNTER 2022-12-04 08:41 | Emergency (ER) | payer MEDICARE ==
[2022-12-04] MEDS ORDERED: Phytonadione 5 MG Tab PO ONE (09:45)
[2022-12-04 10:13] VITALS: BP 172/66; PULSE 60
== END 2022-12-04 10:13 | disposition home or self-care (01) ==
LOC: FB.ED 08:41
DX: K62.5 Hemorrhage of anus and rectum (principal); R79.1 Abnormal coagulation profile; I25.10 Atherosclerotic heart disease of native coronary artery without angina pectoris; E78.00 Pure hypercholesterolemia, unspecified; I10 Essential (primary) hypertension; K21.9 Gastro-esophageal reflux disease without esophagitis; Z88.5 Allergy status to narcotic agent; Z79.82 Long term (current) use of aspirin; Z79.899 Other long term (current) drug therapy; Z79.01 Long term (current) use of anticoagulants; Z86.73 Personal history of transient ischemic attack (TIA), and cerebral infarction without residual deficits
CPT/HCPCS: 36415; 85025; 85610; 99282; 99283; A9270-GY